=== PATIENT | male | born 1975 | race Caucasian/White ===

== ENCOUNTER 2019-08-01 14:14 | Emergency (ER) | payer OTHER ==
[~2019-08-01] VITALS: Ht 180.3 cm; Wt 81.7 kg
[~2019-08-01 14:14] MED LIST: BUPR100ER PO; HYDACE5 PO; IBUP400 PO; OMEP20ER PO; PENVK500 PO
[2019-08-01] MEDS ORDERED: GABA300 PO (14:41)
[2019-08-01 15:35] LABS: Calcium, Ionized (POC) 1.09 mmol/L (1.10-1.46); Chloride (POC) 104 mmol/L (98-108); Creatinine (POC) 0.9 mg/dL (0.8-1.3); Glucose (ISTAT POC) 99 mg/dL (70-99); Hemoglobin (POC) 17.3 g/dL (13.5-17.5); Potassium (POC) 4.8 mmol/L (3.5-5.5); Sodium (POC) 139 mmol/L (135-148); Total CO2 (POC) 27 mmol/L (21-32)
== END 2019-08-01 18:18 | disposition home or self-care (01) ==
LOC: ER 14:14
DX: S20.211A Contusion of right front wall of thorax, initial encounter (principal); K62.5 Hemorrhage of anus and rectum; F17.200 Nicotine dependence, unspecified, uncomplicated; Z79.899 Other long term (current) drug therapy; W10.9XXA Fall (on) (from) unspecified stairs and steps, initial encounter
CPT/HCPCS: 36415; 71101; 80047; 85014; 99283-25; A9270

== ENCOUNTER 2021-01-03 17:43 | Emergency (ER) | payer OTHER ==
[~2021-01-03] VITALS: Ht 182.9 cm; Wt 86.2 kg
[~2021-01-03 17:43] MED LIST changes: +GABA300 PO
== END 2021-01-03 18:50 | disposition home or self-care (01) ==
LOC: ER 17:43
DX: S01.01XA Laceration without foreign body of scalp, initial encounter (principal); Z23 Encounter for immunization; Z79.899 Other long term (current) drug therapy; F17.200 Nicotine dependence, unspecified, uncomplicated; V00.831A Fall from motorized mobility scooter, initial encounter
CPT/HCPCS: 12001; 90471; 90714; 99282-25

== ENCOUNTER 2021-05-21 17:06 | Emergency (ER) | payer OTHER ==
[~2021-05-21] VITALS: Ht 182.9 cm; Wt 83.9 kg
== END 2021-05-21 20:22 | disposition home or self-care (01) ==
LOC: ER 17:06
DX: M79.672 Pain in left foot (principal); F17.290 Nicotine dependence, other tobacco product, uncomplicated
CPT/HCPCS: 73630; 96372; 99283-25; J1885

== ENCOUNTER 2021-07-22 17:45 | Emergency (ER) | payer BC, OTHER ==
[~2021-07-22] VITALS: Ht 182.9 cm; Wt 83.9 kg
[2021-07-22 18:42] LABS: BASOPHILS ABSOLUTE AUTO 0.02 K/mm3 (0.00-0.23); BASOPHILS PERCENT AUTO 1 % (0-2); EOSINOPHILS ABSOLUTE AUTO 0.03 K/mm3 (0.00-0.68); EOSINOPHILS PERCENT AUTO 1 % (0-6); Hematocrit 44.3 % (37.0-53.0); Hemoglobin 15.4 g/dL (13.5-17.5); IMMATURE GRAN ABSOLUTE AUTO 0.01 K/mm3 (0.00-0.10); IMMATURE GRAN PERCENT AUTO 0 % (0-1); LYMPHOCYTES ABSOLUTE AUTO 1.74 K/mm3 (0.84-5.20); LYMPHOCYTES PERCENT AUTO 43 % (21-46); MONOCYTES ABSOLUTE AUTO 0.52 K/mm3 (0.16-1.47); MONOCYTES PERCENT AUTO 13 % (4-13); Mean Corpuscular HGB 32.9 pg (26.0-34.0); Mean Corpuscular HGB Conc 34.8 g/dL (31.5-36.5); Mean Corpuscular Volume 95 fL (80-100); Mean Platelet Volume 10.7 fL (9.1-12.4); NEUTROPHILS PERCENT AUTO 42 % (41-73); Platelet Count 117 K/mm3 (150-400); RDW Coefficient Variation 12.7 % (11.7-14.2); RDW Standard Deviation 44.3 fL (35.1-46.3); Red Blood Cell Count 4.68 M/mm3 (4.30-5.90); White Blood Cell Count 4.02 K/mm3 (4.00-11.30)
[2021-07-22 18:53] LABS: Acetaminophen, Random <2.0 ug/mL (10.0-30.0); Alanine Aminotransfer (ALT/SGP 137 U/L (12-78); Albumin, Blood 3.5 g/dL (3.4-5.0); Alk Phos 69 U/L (50-136); Anion Gap 4 mmol/L (6-16); Aspartate Aminotrans (AST/SGOT 81 U/L (12-37); Bilirubin, Total 0.4 mg/dL (0.1-1.0); Blood Urea Nitrogen 12 mg/dL (8-24); Bun/Creatinine Ratio 13.4 (12.0-20.0); CO2, Blood 28 mmol/L (21-32); Calcium, Blood 9.4 mg/dL (8.5-10.1); Chloride, Blood 107 mmol/L (98-108); Ethanol (Alcohol), Blood, Med <3 mg/dL; Globulin, Blood 3.6 g/dL (2.2-4.0); Glomerular Filtration Rate >60 (60-); Glucose, Blood 128 mg/dL (70-99); Potassium, Blood 3.9 mmol/L (3.5-5.5); Sodium, Blood 139 mmol/L (136-145); Total Protein, Blood 7.1 g/dL (6.4-8.2)
== END 2021-07-23 07:03 | disposition home or self-care (01) ==
LOC: ER 17:45
PROVIDERS: Student in an Organized Health Care Education/Training Program
DX: T42.4X1A Poisoning by benzodiazepines, accidental (unintentional), initial encounter (principal); R40.0 Somnolence; F10.239 Alcohol dependence with withdrawal, unspecified; F17.210 Nicotine dependence, cigarettes, uncomplicated
CPT/HCPCS: 36415; 80053; 85025; 93005; 93010; G0480; J2060

== ENCOUNTER 2021-12-04 09:21 | Day surgery (SDC) | payer BC, OTHER ==
[~2021-12-04] VITALS: Ht 177.8 cm; Wt 174.6 kg
[~2021-12-04 09:21] MED LIST changes: +GABA800 PO; +NAPR500ERA PO; +QUET200 PO
== END 2021-12-04 12:04 | disposition home or self-care (01) ==
LOC: ORSCSDS 09:21
PROVIDERS: Internal Medicine Gastroenterology
PROC: 0DJD8ZZ Inspection of Lower Intestinal Tract, Via Natural or Artificial Opening Endoscopic (ICD-10-PCS; principal; 2021-12-04 10:45)
DX: K62.5 Hemorrhage of anus and rectum (principal); K64.8 Other hemorrhoids; B19.20 Unspecified viral hepatitis C without hepatic coma; F17.210 Nicotine dependence, cigarettes, uncomplicated; Z79.899 Other long term (current) drug therapy
CPT/HCPCS: J2704; J7120

== ENCOUNTER 2022-01-17 14:14 | Emergency (ER) | payer BC, OTHER ==
[~2022-01-17] VITALS: Ht 177.8 cm; Wt 83.9 kg
[2022-01-17] MEDS ORDERED: Norco 5-325 Ta1 EACH PO ×2 (16:00→16:05)
== END 2022-01-17 16:14 | disposition home or self-care (01) ==
LOC: ER 14:14
DX: S43.401A Unspecified sprain of right shoulder joint, initial encounter (principal); F17.290 Nicotine dependence, other tobacco product, uncomplicated; V00.848A Other accident with standing micro-mobility pedestrian conveyance, initial encounter; Z79.899 Other long term (current) drug therapy
CPT/HCPCS: 73030; J1885

== ENCOUNTER 2022-01-23 17:54 | Emergency (ER) | payer BC, OTHER ==
[~2022-01-23] VITALS: Ht 180.3 cm; Wt 83.9 kg
[~2022-01-23 17:54] MED LIST changes: +Norco 5-325 Ta1 EACH PO
[2022-01-23] MEDS ORDERED: POLYTRIM EYE DR10 M1 BOTHEYES (23:08)
== END 2022-01-23 23:12 | disposition home or self-care (01) ==
LOC: ER 17:54
DX: H10.33 Unspecified acute conjunctivitis, bilateral (principal); F17.210 Nicotine dependence, cigarettes, uncomplicated
CPT/HCPCS: 99282

== ENCOUNTER 2022-02-17 13:16 | Emergency (ER) | payer BC, OTHER ==
[~2022-02-17] VITALS: Ht 180.3 cm; Wt 83.9 kg
[~2022-02-17 13:16] MED LIST changes: +Floxin10 ML BOTHEYES; +POLYTRIM EYE DR10 M1 BOTHEYES
[2022-02-17] MEDS ORDERED: HYDR1TAB94 PO (15:10)
[2022-02-17] MEDS ORDERED: IBUP800 PO (15:10)
== END 2022-02-17 15:25 | disposition home or self-care (01) ==
LOC: ER 13:16
DX: S46.001A Unspecified injury of muscle(s) and tendon(s) of the rotator cuff of right shoulder, initial encounter (principal); V00.848A Other accident with standing micro-mobility pedestrian conveyance, initial encounter; F17.210 Nicotine dependence, cigarettes, uncomplicated; Z79.899 Other long term (current) drug therapy
CPT/HCPCS: 73030; A9270

== ENCOUNTER 2023-06-10 17:56 | Emergency (ER) | payer OTHER ==
[~2023-06-10] VITALS: Ht 182.9 cm; Wt 90.7 kg
[~2023-06-10 17:56] MED LIST changes: +ERYT1OIN LEFTEYE; +HYDR1TAB94 PO; +IBUP800 PO
[2023-06-10] MEDS ORDERED: GABAPENTIN600 MG PO (18:52)
[2023-06-10] MEDS ORDERED: CYCL10 PO (18:52)
[2023-06-10] MEDS ORDERED: IBU800 M1 PO (18:52)
[2023-06-10] MEDS ORDERED: Ventolin/Prove6.7 GM INH (18:52)
[2023-06-10 19:14] LABS: BASOPHILS ABSOLUTE AUTO 0.03 K/mm3 (0.00-0.23); BASOPHILS PERCENT AUTO 0 % (0-2); EOSINOPHILS ABSOLUTE AUTO 0.07 K/mm3 (0.00-0.68); EOSINOPHILS PERCENT AUTO 1 % (0-6); Hematocrit 42.5 % (37.0-53.0); Hemoglobin 14.6 g/dL (13.5-17.5); IMMATURE GRAN ABSOLUTE AUTO 0.02 K/mm3 (0.00-0.10); IMMATURE GRAN PERCENT AUTO 0 % (0-1); LYMPHOCYTES ABSOLUTE AUTO 2.43 K/mm3 (0.84-5.20); LYMPHOCYTES PERCENT AUTO 31 % (21-46); MONOCYTES ABSOLUTE AUTO 0.58 K/mm3 (0.16-1.47); MONOCYTES PERCENT AUTO 7 % (4-13); Mean Corpuscular HGB 30.4 pg (26.0-34.0); Mean Corpuscular HGB Conc 34.4 g/dL (31.5-36.5); Mean Corpuscular Volume 89 fL (80-100); Mean Platelet Volume 12.3 fL (9.1-12.4); NEUTROPHILS ABSOLUTE AUTO 4.82 K/mm3 (1.96-9.15); NEUTROPHILS PERCENT AUTO 61 % (41-73); Platelet Count 261 K/mm3 (150-400); RDW Coefficient Variation 15.5 % (11.7-14.2); RDW Standard Deviation 49.9 fL (35.1-46.3); White Blood Cell Count 7.95 K/mm3 (4.00-11.30)
[2023-06-10 21:11] VITALS: BP 124/73
[2023-06-10 21:29] LABS: Albumin, Blood 3.7 g/dL (3.4-5.0); Bilirubin, Total 0.1 mg/dL (0.1-1.0); Bun/Creatinine Ratio 9.7 (12.0-20.0); Calcium, Blood 8.6 mg/dL (8.5-10.1); Creatinine, Blood 0.93 mg/dL (0.60-1.20); Globulin, Blood 3.6 g/dL (2.2-4.0); Total Protein, Blood 7.3 g/dL (6.4-8.2)
[2023-06-10] MEDS ORDERED: HYDR1TAB94 PO (22:02)
== END 2023-06-10 22:28 | disposition home or self-care (01) ==
LOC: ER 17:56
PROVIDERS: Emergency Medicine; Student in an Organized Health Care Education/Training Program
DX: R07.89 Other chest pain (principal); M54.6 Pain in thoracic spine; M54.50 Low back pain, unspecified; M54.2 Cervicalgia; F17.210 Nicotine dependence, cigarettes, uncomplicated; Z79.899 Other long term (current) drug therapy; W01.10XA Fall on same level from slipping, tripping and stumbling with subsequent striking against unspecified object, initial encounter
CPT/HCPCS: 36415; 71260; 73030; 80053; 84484; 85025; 93005; 93010; 99284-25; A9270; Q9967

== ENCOUNTER 2024-04-17 23:31 | Emergency (ER) | payer OTHER ==
[~2024-04-17] VITALS: Ht 182.9 cm; Wt 90.7 kg
[~2024-04-17 23:31] MED LIST changes: +CYCL10 PO; +GABAPENTIN600 MG PO; +IBU800 M1 PO; +Ventolin/Prove6.7 GM INH
[2024-04-18] VITALS: BP 134/93
== END 2024-04-18 01:17 | disposition home or self-care (01) ==
LOC: ER 23:31
DX: S81.812A Laceration without foreign body, left lower leg, initial encounter (principal); W29.3XXA Contact with powered garden and outdoor hand tools and machinery, initial encounter; Z79.899 Other long term (current) drug therapy
CPT/HCPCS: 12001; 73590; 99283-25